=== PATIENT | female | born 1955 | race Caucasian/White ===

== ENCOUNTER → 2016-07-03 | Outpatient (CLI) | payer BC ==
[2016-07-03 08:35] LABS: ALANINE AMINOTRANSFERASE 31 U/L (9-52); ALBUMIN 3.8 g/dL (3.5-5.0); ALKALINE PHOSPHATASE 84 U/L (38-126); ASPARTATE AMINO TRANSFERASE 26 U/L (14-36); BILIRUBIN,DIRECT 0.2 mg/dL (0.0-0.4); BILIRUBIN,TOTAL 0.4 mg/dL (0.2-1.3); TOTAL PROTEIN 6.1 g/dL (6.3-8.2)
== END ==
LOC: OD 07:15
PROVIDERS: ATTEND Radiology Radiation Oncology
DX: C50.011 Malignant neoplasm of nipple and areola, right female breast (principal); Z17.1 Estrogen receptor negative status [ER-]; Z79.899 Other long term (current) drug therapy
CPT/HCPCS: 36415; 80076

== ENCOUNTER → 2016-11-05 | Outpatient (CLI) | payer BC ==
[2016-11-05 08:24] LABS: ABSOLUTE EOSINOPHILS # (AUTO) 0.5 10^3/uL (0.0-0.6); ABSOLUTE LYMPHOCYTES (AUTO) 1.5 10^3/uL (0.5-4.7); ABSOLUTE MONOCYTES (AUTO) 0.8 10^3/uL (0.1-1.4); ABSOLUTE NEUT (AUTO) 3.7 10^3/uL (1.7-8.2); BASOPHILS % (AUTO) 0.7 % (0-2); EOSINOPHILS % (AUTO) 7.1 % (0-6); HEMATOCRIT 40.9 % (36.0-47.0); HEMOGLOBIN 14.1 g/dL (12.0-15.5); HGB HCT DIFFERENCE 1.4; LYMPHOCYTES % (AUTO) 23.6 % (13-45); MEAN CORPUSCULAR HEMOGLOBIN 30.1 pg (27.0-33.4); MEAN CORPUSCULAR HGB CONC 34.4 g/dL (32.0-36.0); MEAN CORPUSCULAR VOLUME 88 fl (80-97); MONOCYTES % (AUTO) 11.7 % (3-13); RED BLOOD COUNT 4.68 10^6/uL (3.72-5.28); SEGMENTED NEUTROPHILS % (AUTO) 56.9 % (42-78); WHITE BLOOD COUNT 6.5 10^3/uL (4.0-10.5)
[2016-11-05 08:48] LABS: ALANINE AMINOTRANSFERASE 32 U/L (9-52); ALBUMIN 3.9 g/dL (3.5-5.0); ALKALINE PHOSPHATASE 102 U/L (38-126); ASPARTATE AMINO TRANSFERASE 29 U/L (14-36); BILIRUBIN,DIRECT 0.3 mg/dL (0.0-0.4); BILIRUBIN,TOTAL 0.6 mg/dL (0.2-1.3); TOTAL PROTEIN 6.8 g/dL (6.3-8.2)
== END ==
LOC: OD 07:42
PROVIDERS: ATTEND Radiology Radiation Oncology
DX: C50.011 Malignant neoplasm of nipple and areola, right female breast (principal); Z17.1 Estrogen receptor negative status [ER-]; Z79.899 Other long term (current) drug therapy
CPT/HCPCS: 36415; 80076; 85025

== ENCOUNTER 2017-06-06 18:01 | Emergency (ER) | payer BC ==
[2017-06-06] MEDS ORDERED: HYDROMORPHONE HCL INJ/PF 2 MG/ML AMPULE IV ONE (18:44)
[2017-06-06] MEDS ORDERED: DIPHENHYDRAMINE HCL 50 MG/ML VIAL IV ONE (18:44)
--- NOTE | 2017-06-06 18:47 | ER Document Report ---
ED Medical Screen (RME) - General TRAVEL OUTSIDE OF THE [place] IN LAST 30 DAYS: No <JAISON MIRANDA - Last Filed: 06/06/17 18:45> <JERED BARAJAS - Last Filed: 06/06/17 22:56> - General Chief Complaint: Flank Pain Stated Complaint: FLANK PAIN Time Seen by Provider: 06/06/17 18:34 Notes: Patient says that she had the sudden onset of pain in her left flank 10 AM this morning. She was not doing any unusual activity when it happened. The pain is now starting to go around the left side to the front. Pain is constant and does not seem to be increased or decreased by any particular factors. She has not had any nausea or vomiting. She had one regular bowel movement today followed by a loose stool. No blood seen. Denies urinary tract symptoms. No history of kidney stones. No history of cardiac disease. GERD. Hypertension. Cholesterol. Patient was diagnosed with right breast cancer 2 years ago. She underwent initial surgery followed by radiation and chemotherapy. She has completed all of that and is believed to be cancer free so she is no longer receiving any treatment for her cancer. (JAISON MIRANDA) - Related Data Allergies/Adverse Reactions: No Known Allergies Allergy (Unverified 06/06/17 18:02) Past Medical History - Social History Frequency of alcohol use: Rare Drug Abuse: None Renal/ Medical History: Denies: Hx Peritoneal Dialysis <JAISON MIRANDA - Last Filed: 06/06/17 18:45> - Vital signs Vitals: Temp Pulse Resp BP Pulse Ox 98.0 F 115 H 18 149/77 H 96 06/06/17 18:07 06/06/17 18:07 06/06/17 18:07 06/06/17 18:07 06/06/17 18:07 Course - Laboratory Result Diagrams: 06/06/17 19:00 06/06/17 19:00 <JERED BARAJAS - Last Filed: 06/06/17 22:56> - Vital Signs Vital signs: Temp Pulse Resp BP Pulse Ox 98.0 F 115 H 18 149/77 H 96 06/06/17 18:07 06/06/17 18:07 06/06/17 18:07 06/06/17 18:06/06/17 18:07 - Laboratory Laboratory results interpreted by me: 06/06/17 06/06/17 06/06/17 19:00 19:00 19:00 Seg Neutrophils % 78.3 H Sodium 135.7 L Glucose 165 H Urine Glucose (UA) 50 H Ur Leukocyte Esterase TRACE H Urine Ascorbic Acid 40 H Doctor's Discharge <JAISON MIRANDA - Last Filed: 06/06/17 18:45> <JERED BARAJAS - Last Filed: 06/06/17 22:56> - Discharge Clinical Impression: High blood sugar, Elevated serum glucose with glucosuria Condition: Stable Instructions: Abdominal Pain ([facility]) Additional Instructions: Your blood sugar was slightly elevated today (165). Please follow up with your primary medical doctor for further evaluation. Prescriptions: Naproxen [Naprosyn] 500 mg PO BID 5 Days #10 tablet Referrals: KAVON WHEATLEY MD [Primary Care Provider] - Follow up in 3-5 days
[2017-06-06 19:23] LABS: ABSOLUTE EOSINOPHILS # (AUTO) 0.2 10^3/uL (0.0-0.6); ABSOLUTE LYMPHOCYTES (AUTO) 1.3 10^3/uL (0.5-4.7); ABSOLUTE MONOCYTES (AUTO) 0.5 10^3/uL (0.1-1.4); ABSOLUTE NEUT (AUTO) 7.2 10^3/uL (1.7-8.2); BASOPHILS % (AUTO) 0.4 % (0-2); EOSINOPHILS % (AUTO) 2.4 % (0-6); HEMATOCRIT 44.7 % (36.0-47.0); LYMPHOCYTES % (AUTO) 13.9 % (13-45); MEAN CORPUSCULAR HEMOGLOBIN 29.3 pg (27.0-33.4); MEAN CORPUSCULAR HGB CONC 33.5 g/dL (32.0-36.0); MEAN CORPUSCULAR VOLUME 87 fl (80-97); PLATELET COUNT 324 10^3/uL (150-450); RED BLOOD COUNT 5.11 10^6/uL (3.72-5.28); RED CELL DISTRIBUTION WIDTH 13.8 % (11.5-14.0); SEGMENTED NEUTROPHILS % (AUTO) 78.3 % (42-78); TOTAL CELLS COUNTED % (AUTO) 100 %; WHITE BLOOD COUNT 9.2 10^3/uL (4.0-10.5)
--- NOTE | 2017-06-06 19:25 | ER Document Report ---
ED General - General Chief Complaint: Flank Pain Stated Complaint: FLANK PAIN Time Seen by Provider: 06/06/17 18:34 Mode of Arrival: Ambulatory Information source: Patient TRAVEL OUTSIDE OF THE [place] IN LAST 30 DAYS: No - HPI Patient complains to provider of: left side pain Onset: This morning - 1000am Quality of pain: Pressure Severity: Moderate Associated symptoms: None Exacerbated by: Denies Relieved by: Denies Similar symptoms previously: No Recently seen / treated by doctor: No Notes: acute onset left flank pain this am at 1000. No aggravating/alleviating factors. No associated symptoms. - Related Data Allergies/Adverse Reactions: No Known Allergies Allergy (Unverified 06/06/17 18:02) Past Medical History - Social History Smoking Status: Never Smoker Frequency of alcohol use: Rare Drug Abuse: None Lives with: Family Family History: Hypertension Patient has suicidal ideation: No Patient has homicidal ideation: No - Past Medical History Cardiac Medical History: Reports: Hx Hypertension Pulmonary Medical History: Reports: None EENT Medical History: Reports: None Neurological Medical History: Reports: None Endocrine Medical History: Reports: None Renal/ Medical History: Reports: None. Denies: Hx Peritoneal Dialysis Malignancy Medical History: Reports: Hx Breast Cancer GI Medical History: Reports: None Musculoskeltal Medical History: Reports None Skin Medical History: Reports None Psychiatric Medical History: Reports: None Traumatic Medical History: Reports: None Infectious Medical History: Reports: None Past Surgical History: Reports: Hx Lumpectomy Review of Systems - Review of Systems Constitutional: No symptoms reported EENT: No symptoms reported Cardiovascular: No symptoms reported Respiratory: No symptoms reported Gastrointestinal: See HPI Genitourinary: No symptoms reported Female Genitourinary: No symptoms reported Musculoskeletal: No symptoms reported Hematologic/Lymphatic: No symptoms reported Neurological/Psychological: No symptoms reported Physical Exam - Vital signs Vitals: Temp Pulse Resp BP Pulse Ox 98.0 F 115 H 18 149/77 H 96 06/06/17 18:07 06/06/17 18:07 06/06/17 18:07 06/06/17 18:07 06/06/17 18:07 - Notes Notes: PHYSICAL EXAMINATION: GENERAL: Well-appearing, well-nourished and in no acute distress. Laying in bed on her right side with a blanket from home over her. HEAD: Atraumatic, normocephalic. EYES: Pupils equal round and reactive to light, extraocular movements intact, conjunctiva are normal. ENT: Nares patent, oropharynx clear without exudates. Moist mucous membranes. NECK: Normal range of motion, supple without lymphadenopathy LUNGS: Breath sounds clear to auscultation bilaterally and equal. No wheezes rales or rhonchi. HEART: Regular rate and rhythm without murmurs ABDOMEN: Soft, nontender, nondistended abdomen. No guarding, no rebound. No masses appreciated. Nonreproducible left flank pain. Female : deferred Musculoskeletal: Normal range of motion, no pitting or edema. No cyanosis. NEUROLOGICAL: Cranial nerves grossly intact. Normal speech. Normal sensory, motor exams. PSYCH: Normal mood, normal affect. SKIN: Warm, Dry, normal turgor, no rashes or lesions noted. Course - Re-evaluation Re-evalutation: 06/06/17 20:53 Labs- All tests 24 hr 06/06/17 06/06/17 06/06/17 19:00 19:00 19:00 WBC 9.2 RBC 5.11 Hgb 15.0 Hct 44.7 MCV 87 MCH 29.3 MCHC 33.5 RDW 13.8 Plt Count 324 Seg Neutrophils % 78.3 H Lymphocytes % 13.9 Monocytes % 5.0 Eosinophils % 2.4 Basophils % 0.4 Absolute Neutrophils 7.2 Absolute Lymphocytes 1.3 Absolute Monocytes 0.5 Absolute Eosinophils 0.2 Absolute Basophils 0.0 Sodium 135.7 L Potassium 4.9 Chloride 100 Carbon Dioxide 26 Anion Gap 10 BUN 14 Creatinine 0.74 Est GFR ( Amer) > 60 Est GFR (Non-Af Amer) > 60 Glucose 165 H Calcium 9.7 Total Bilirubin 0.4 Direct Bilirubin 0.4 Neonat Total Bilirubin Not Reportable Neonat Direct Bilirubin Not Reportable Neonat Indirect Bili Not Reportable AST 33 ALT 46 Alkaline Phosphatase 111 Total Protein 7.0 Albumin 4.2 Lipase 77.5 Urine Color YELLOW Urine Appearance CLOUDY Urine pH 7.0 Ur Specific Colbert 1.021 Urine Protein NEGATIVE Urine Glucose (UA) 50 H Urine Ketones NEGATIVE Urine Blood NEGATIVE Urine Nitrite NEGATIVE Urine Bilirubin NEGATIVE Urine Urobilinogen NEGATIVE Ur Leukocyte Esterase TRACE H Urine WBC (Auto) 1 Urine RBC (Auto) 2 Squamous Epi Cells Auto 3 Amorphous Sediment Auto TRACE Urine Mucus (Auto) OCC Urine Ascorbic Acid 40 H 06/06/17 22:50 Labs- All tests 24 hr 06/06/17 06/06/17 06/06/17 19:00 19:00 19:00 WBC 9.2 RBC 5.11 Hgb 15.0 Hct 44.7 MCV 87 MCH 29.3 MCHC 33.5 RDW 13.8 Plt Count 324 Seg Neutrophils % 78.3 H Lymphocytes % 13.9 Monocytes % 5.0 Eosinophils % 2.4 Basophils % 0.4 Absolute Neutrophils 7.2 Absolute Lymphocytes 1.3 Absolute Monocytes 0.5 Absolute Eosinophils 0.2 Absolute Basophils 0.0 Sodium 135.7 L Potassium 4.9 Chloride 100 Carbon Dioxide 26 Anion Gap 10 BUN 14 Creatinine 0.74 Est GFR ( Amer) > 60 Est GFR (Non-Af Amer) > 60 Glucose 165 H Calcium 9.7 Total Bilirubin 0.4 Direct Bilirubin 0.4 Neonat Total Bilirubin Not Reportable Neonat Direct Bilirubin Not Reportable Neonat Indirect Bili Not Reportable AST 33 ALT 46 Alkaline Phosphatase 111 Total Protein 7.0 Albumin 4.2 Lipase 77.5 Urine Color YELLOW Urine Appearance CLOUDY Urine pH 7.0 Ur Specific Colbert 1.021 Urine Protein NEGATIVE Urine Glucose (UA) 50 H Urine Ketones NEGATIVE Urine Blood NEGATIVE Urine Nitrite NEGATIVE Urine Bilirubin NEGATIVE Urine Urobilinogen NEGATIVE Ur Leukocyte Esterase TRACE H Urine WBC (Auto) 1 Urine RBC (Auto) 2 Squamous Epi Cells Auto 3 Amorphous Sediment Auto TRACE Urine Mucus (Auto) OCC Urine Ascorbic Acid 40 H Abdomen/Pelvis CT 06/06/17 20:22 IMPRESSION: NO SIGNIFICANT OR ACUTE PROCESS IN THE ABDOMEN OR PELVIS. - Vital Signs Vital signs: Temp Pulse Resp BP Pulse Ox 98.0 F 115 H 18 149/77 H 96 06/06/17 18:07 06/06/17 18:07 06/06/17 18:07 06/06/17 18:07 06/06/17 18:07 - Laboratory Result Diagrams: 06/06/17 19:00 06/06/17 19:00 Laboratory results interpreted by me: 06/06/17 06/06/17 06/06/17 19:00 19:00 19:00 Seg Neutrophils % 78.3 H Sodium 135.7 L Glucose 165 H Urine Glucose (UA) 50 H Ur Leukocyte Esterase TRACE H Urine Ascorbic Acid 40 H Discharge - Discharge Clinical Impression: High blood sugar, Elevated serum glucose with glucosuria Condition: Stable Instructions: Abdominal Pain ([facility]) Additional Instructions: Your blood sugar was slightly elevated today (165). Please follow up with your primary medical doctor for further evaluation. Referrals: KAVON WHEATLEY MD [Primary Care Provider] - Follow up in 3-5 days
[2017-06-06 19:42] LABS: ALANINE AMINOTRANSFERASE 46 U/L (9-52); ALBUMIN 4.2 g/dL (3.5-5.0); ALKALINE PHOSPHATASE 111 U/L (38-126); ANION GAP 10 (5-19); ASPARTATE AMINO TRANSFERASE 33 U/L (14-36); BILIRUBIN,DIRECT 0.4 mg/dL (0.0-0.4); BILIRUBIN,TOTAL 0.4 mg/dL (0.2-1.3); BLOOD UREA NITROGEN 14 mg/dL (7-20); CALCIUM 9.7 mg/dL (8.4-10.2); CARBON DIOXIDE 26 mmol/L (22-30); CHLORIDE 100 mmol/L (98-107); GLUCOSE 165 mg/dL (75-110); LIPASE 77.5 U/L (23-300); POTASSIUM 4.9 mmol/L (3.6-5.0); SODIUM 135.7 mmol/L (137-145)
[2017-06-06 20:02] LABS: AMORPHOUS SEDIMENT,URINE TRACE /HPF; APPEARANCE,URINE CLOUDY; BILIRUBIN,URINE NEGATIVE (NEGATIVE); COLOR,URINE YELLOW; GLUCOSE, URINE 50 mg/dL (NEGATIVE); KETONES,URINE NEGATIVE (NEGATIVE); LEUKOCYTE ESTERASE,URINE TRACE (NEGATIVE); NITRITE,URINE NEGATIVE (NEGATIVE); PROTEIN,URINE NEGATIVE (NEGATIVE); URINE SPECIFIC GRAVITY 1.021; UROBILINOGEN,URINE NEGATIVE mg/dL (<2.0)
[2017-06-06] MEDS ORDERED: KETOROLAC TROMETHAMINE INJ/PF 30 MG/1 ML SDV IV ONE (20:23)
--- NOTE | 2017-06-06 21:07 | RADIOLOGY REPORT (SQ) ---
EXAM DESCRIPTION: CT ABD/PELVIS NO ORAL OR IV COMPLETED DATE/TIME: 06/06/2017 8:42 pm REASON FOR STUDY: left flank pain COMPARISON: None. TECHNIQUE: CT scan of the abdomen and pelvis performed without intravenous or oral contrast. Images reviewed with lung, soft tissue, and bone windows. Reconstructed coronal and sagittal MPR images revi ewed. All images stored on PACS. All CT scanners at this facility use dose modulation, iterative reconstruction, and/or weight based d osing when appropriate to reduce radiation dose to as low as reasonably achievable (ALARA). [facility]: Dose Right [facility]: CareDose [facility]: Dose Right [facility]: Teradose 4D [facility]: Smart [employer] RADIATION DOSE: CT Rad equipment meets quality standard of care and radiation dose reduction techniq ues were employed. CTDIvol: 19.0 mGy. DLP: 1026 mGy-cm.mGy. LIMITATIONS: None. FINDINGS: LOWER CHEST: No significant findings. No nodules or infiltrates. NON-CONTRASTED LIVER, SPLEEN, ADRENALS: Evaluation limited by lack of IV contrast. No identified sign ificant masses. PANCREAS: No masses. No peripancreatic inflammatory changes. GALLBLADDER: No identified stones by CT criteria. No inflammatory changes to suggest cholecystitis. RIGHT KIDNEY AND URETER: No suspicious masses. Assessment limited by lack of IV contrast. No signif icant calcifications. No hydronephrosis or hydroureter. LEFT KIDNEY AND URETER: No suspicious masses. Assessment limited by lack of IV contrast. No signifi cant calcifications. No hydronephrosis or hydroureter. AORTA AND RETROPERITONEUM: No aneurysm. No retroperitoneal masses or adenopathy. BOWEL AND PERITONEAL CAVITY: No obvious masses or inflammatory changes. No free fluid. APPENDIX: Not visualized. PELVIS, BLADDER, AND ABDOMINAL WALL:No abnormal masses. No free fluid. Bladder normal. BONES: No significant findings. OTHER: No other significant finding. IMPRESSION: NO SIGNIFICANT OR ACUTE PROCESS IN THE ABDOMEN OR PELVIS. COMMENT: Quality ID # [id number]: Final reports with documentation of one or more dose reduction techniques (e.g., Automated exposure control, adjustment of the mA and/or kV according to patient size, use of iterative reconstruction technique) TECHNICAL DOCUMENTATION: JOB ID: [id number] [employer]- All Rights Reserved Reading location - IP/workstation name: [email or web address]
[2017-06-06] MEDS ORDERED: HYDROCODONE/ACETAMINOPHEN 5-325 MG (6 TAB/ER DISP) PO PRN (22:49)
[2017-06-06 23:10] VITALS: BP 135/82
== END 2017-06-06 23:11 | disposition home or self-care (01) ==
LOC: ER 18:01
DX: R73.9 Hyperglycemia, unspecified (principal); R81 Glycosuria; R10.9 Unspecified abdominal pain; I10 Essential (primary) hypertension; Z85.3 Personal history of malignant neoplasm of breast
CPT/HCPCS: 99284; 96374; 96375; 36415; 83690; 85025; 80053; 81001; 74176; J1200; J1885; J1170

== ENCOUNTER → 2018-04-04 | Outpatient (CLI) | payer BC ==
--- NOTE | 2018-04-04 10:51 | WOMENS IMAGING REPORT ---
EXAM DESCRIPTION: BONE DENSITY HIP/SPINE COMPLETED DATE/TIME: 04/04/2018 10:27 am REASON FOR STUDY: M81.0 OSTEOPOROSIS M81.0 AGE-RELATED OSTEOPOROSIS W/O CURRENT PATHOLOGICAL FRAC COMPARISON: 04/01/2016. TECHNIQUE: Dual-Energy X-ray Absorptiometry (DEXA) of the AP Spine and Hip. LIMITATIONS: None. FINDINGS: LUMBAR SPINE: The bone mineral density (BMD) measured from L1-L4 in the AP projection correlates with a T-score of -0.3, which is normal as defined by the World Health Organization. HIP: The bone mineral density (BMD) measured in the left hip correlates with a T-score of 0.5, which is no rmal as defined by the World Health Organization. IMPRESSION: 1. LUMBAR SPINE: NORMAL. 2. HIP: NORMAL. COMMENT: The World Health Organization defines low BMD as follows: T-score: Normal: Greater than -1.0 Osteopenia: Between -1.0 and -2.5 Osteoporosis: Less than -2.5 without fractures Established osteoporosis: Less than -2.5 with fractures In general, you may wish to consider: Diagnosis Treatment Follow-up DEXA Normal BMD Prevention 2-3 years Osteopenia Prevention/Therapy 1-2 years Osteoporosis Therapy Yearly TECHNICAL DOCUMENTATION: JOB ID: [id number] [employer]- All Rights Reserved Reading location - IP/workstation name: [email or web address]
== END ==
LOC: WI 10:05
PROVIDERS: ATTEND Internal Medicine
DX: M81.0 Age-related osteoporosis without current pathological fracture (principal)
CPT/HCPCS: 77080

== ENCOUNTER → 2018-08-30 | Outpatient (CLI) | payer BC ==
--- NOTE | 2018-08-30 15:52 | RADIOLOGY REPORT (SQ) ---
EXAM DESCRIPTION: CAROTID DOPPLER COMPLETED DATE/TIME: 08/30/2018 3:33 pm REASON FOR STUDY: RETINAL HEMORRHAGE H35.60 RETINAL HEMORRHAGE, UNSPECIFIED EYE COMPARISON: None. TECHNIQUE: Grayscale ultrasound, Doppler velocity and spectra, and color Doppler images acquired of the extra-cranial carotid and vertebral arteries. Images stored on PACS. LIMITATIONS: High carotid bifurcations in the neck, tortuous proximal ICA bilaterally FINDINGS: RIGHT CAROTID CCA Velocities: Within normal limits. Right common carotid artery peak systolic velocity 1.0 m/sec ICA Velocities Peak systolic 0.84 m/s. End diastolic 0.22 m/s. Proximal ICA/CCA peak systolic ratio 0.8. Spectra normal. No significant plaque. LEFT CAROTID CCA Velocities: Within normal limits. Left common carotid artery peak systolic velocity 0.74 m/sec ICA Velocities Peak systolic 0.6 m/s. End diastolic 0.22 m/s. Proximal ICA/CCA peak systolic ratio 1.2. Spectra normal. No significant plaque. VERTEBRAL ARTERIES: Antegrade flow. Normal waveforms. SUBCLAVIAN ARTERIES: Not evaluated OTHER: No other significant finding. IMPRESSION: NO HEMODYNAMICALLY SIGNIFICANT STENOSIS. COMMENT: Quality ID #[id number]: Velocity criteria are extrapolated from the diameter data as defined by t he Society of Radiologists in Ultrasound Consensus Conference. Radiology 2003: 229; 340-346. TECHNICAL DOCUMENTATION: JOB ID: [id number] [employer]- All Rights Reserved Reading location - IP/workstation name: [email or web address]
== END ==
LOC: SP 14:50
PROVIDERS: ATTEND Nurse Practitioner Primary Care
DX: H35.60 Retinal hemorrhage, unspecified eye (principal)
CPT/HCPCS: 93880

== ENCOUNTER → 2019-03-24 | Outpatient (CLI) | payer BC ==
--- NOTE | 2019-03-26 13:28 | RADIOLOGY REPORT (SQ) ---
EXAM DESCRIPTION: MRI LUMBAR SPINE COMBO COMPLETED DATE/TIME: 03/24/2019 6:11 pm REASON FOR STUDY: (M54.5)LOW BACK PAIN M54.5 LOW BACK PAIN COMPARISON: None. TECHNIQUE: Sagittal and Axial imaging includes T1, T1 post gadolinium, T2, STIR and gradient echo se quences. Coronal T2/HASTE imaging. CONTRAST TYPE AND DOSE: 20 mL Dotarem. RENAL FUNCTION: Not indicated. ACR Type II contrast agent associated with few, if any, unconfounded cases of NSF LIMITATIONS: None. FINDINGS: VISUALIZED UPPER ABDOMEN: Limited evaluation. No acute or suspicious findings suggested. SEGMENTATION: No transitional anatomy. The lowest well-developed disc space is labeled L5-S1. ALIGNMENT: Anatomic. VERTEBRAE: Intact. No fractures. BONE MARROW: Mild reactive endplate changes L2-3, L3-4, L4-5. DISC SIGNAL: Generalized loss of T2 signal. Loss of height lower thoracic discs. POSTERIOR ELEMENTS: Generally intact. No pars defect evident. HARDWARE: None in the spine. CORD AND CONUS: Normal in size and signal intensity. Conus at the appropriate level. SOFT TISSUES: No aortic aneurysm seen. No bulky retroperitoneal adenopathy or mass. No paraspinal mas s or fluid. L1-L2: No significant spinal stenosis or exit foraminal stenosis. L2-L3: Disc bulge. Facet ligamentous hypertrophy. Mild narrowing of both exit foramina. L3-L4: No significant spinal stenosis or exit foraminal stenosis. L4-L5: Disc bulge. Facet ligamentous hypertrophy. Mild narrowing of the exit foramina. Mild to mod erate central canal stenosis. L5-S1: No significant spinal stenosis or exit foraminal stenosis. LOWER THORACIC: Incompletely imaged. No stenosis seen. SACRUM: Visualized upper sacrum intact. ENHANCEMENT: No abnormal enhancement. OTHER: No other significant findings. IMPRESSION: Mild spondylosis. No enhancing lesions. TECHNICAL DOCUMENTATION: JOB ID: [id number] [employer]- All Rights Reserved Reading location - IP/workstation name: [email or web address]
== END ==
LOC: RAD 16:51
PROVIDERS: ATTEND Physician Assistant
DX: M47.896 Other spondylosis, lumbar region (principal); M54.5 Low back pain
CPT/HCPCS: 82565; 72158; A9576

== ENCOUNTER 2019-10-13 08:59 | Inpatient (IN) | payer BC ==
[2019-10-13] MEDS ORDERED: RINGERS LACTATED IV ONE (09:41)
[2019-10-13] MEDS ORDERED: VANCOMYCIN HCL INJ 1000 MG VIAL IV ONE (09:41)
--- NOTE | 2019-10-13 09:46 | ER Document Report ---
ED General - General Chief Complaint: Arm Problem Stated Complaint: BLOOD PRESSURE ISSUE Time Seen by Provider: 10/13/19 09:37 Primary Care Provider: NAINA ADORNO PA [Primary Care Provider] - Follow up as needed Notes: CHIEF COMPLAINT: Right arm and chest wall cellulitis, hypotension HPI: 64-year-old female with history of right breast cancer treated with radiation and chemotherapy years ago presenting for right arm breast and chest wall cellulitis and hypotension. Patient began not feeling well 2 days ago. Saw her PCP today and was noted to have increasing redness on the right arm chest wall and breast. Patient states she has followed with Dr. Dias oncology. Patient states she does have high blood pressure and did take her blood pressure medications today. She was noted to be hypotensive at the PCP clinic and referred over to the emergency department for concern of sepsis ROS: See HPI - all other systems were reviewed and are otherwise negative Constitutional: Subjective fever Eyes: no drainage, no blurred vision ENT: no runny nose, no sore throat Cardiovascular: no chest pain Resp: no SOB, no cough GI: no vomiting, no diarrhea, no abdominal pain : no dysuria Integumentary: + rash Allergy: no hives Musculoskeletal: + extremity pain or swelling Neurological: no numbness/tingling, no weakness MEDICATIONS: I agree with the patient medications as charted by the RN. ALLERGIES: I agree with the allergies as charted by the RN. PAST MEDICAL HISTORY/PAST SURGICAL HISTORY: Reviewed and agree as charted by RN. SOCIAL HISTORY: Reviewed and agree as charted by RN. FAMILY HISTORY: No significant familial comorbid conditions directly related to patient complaint EXAM: With female sleeve turner present Reviewed vital signs as charted by RN. CONSTITUTIONAL: Alert and oriented and responds appropriately to questions. Well-appearing; well-nourished HEAD: Normocephalic; atraumatic EYES: PERRL; Conjunctivae clear, sclerae non-icteric ENT: normal nose; no rhinorrhea; moist mucous membranes; pharynx without lesions noted, no uvula edema or deviation, no tonsillar hypertrophy, phonation normal NECK: Supple without meningismus; non-tender; no cervical lymphadenopathy, no masses CARD: RRR; no murmurs, no clicks, no rubs, no gallops; symmetric distal pulses Breast: Right breast is somewhat firm, erythematous and mildly tender to palpation over the entire breast RESP: Normal chest excursion without splinting or tachypnea; breath sounds clear and equal bilaterally; no wheezes, no rhonchi, no rales, pulse oximetry 97% on room air not hypoxic ABD/GI: Normal bowel sounds; non-distended; soft, non-tender, no rebound, no guarding; no palpable organomegaly or masses. BACK: The back appears normal and is non-tender to palpation, there is no CVA tenderness EXT: Normal ROM in all joints; non-tender to palpation; no cyanosis, no effusions, no edema SKIN: Normal color for age and race; warm; dry; good turgor; erythema and tenderness is noted to the right forearm, right upper arm extending into the shoulder, over the right breast, to the right upper abdomen and lateral right chest wall past the midaxillary line NEURO: Moves all extremities equally; Motor and sensory function intact PSYCH: The patient's mood and manner are appropriate. Grooming and personal hygiene are appropriate. MDM: 64-year-old female with possible cellulitis right arm, right breast, right chest wall. Hypotensive but did take her blood pressure medications already today. Concern for possible sepsis, will start sepsis labs, fluid bolus, antibiotics she will likely need admission TRAVEL OUTSIDE OF THE [place] IN LAST 30 DAYS: No - Related Data Allergies/Adverse Reactions: No Known Allergies Allergy (Unverified 10/13/19 09:20) Past Medical History - Social History Smoking Status: Never Smoker Chew tobacco use (# tins/day): No Frequency of alcohol use: None Drug Abuse: None Family History: Hypertension Patient has homicidal ideation: No - Past Medical History Cardiac Medical History: Reports: Hx Hypertension Renal/ Medical History: Denies: Hx Peritoneal Dialysis Malignancy Medical History: Reports: Hx Breast Cancer Past Surgical History: Reports: Hx Lumpectomy Physical Exam - Vital signs Vitals: Temp Pulse Resp BP Pulse Ox 98.5 F 105 H 20 96/56 L 97 10/13/19 09:04 10/13/19 09:04 10/13/19 09:04 10/13/19 09:04 10/13/19 09:04 Course - Re-evaluation Re-evalutation: 10/13/19 11:17 Doppler study is negative. No DVT in the right upper extremity. Spoke with Dr. Dias. They do continue to follow the patient she had remote history of stage III breast cancer 2016 treated with radiation and chemotherapy. Was treated for mastitis in August 2019 with 10-day course of Augmentin with improvement in symptoms. Did have mammogram of the right breast and of September 2019 which showed some thickening of the tissue but no mass. We discussed patient case may be admitted to hospitalist for cellulitis and he will be happy to consult if needed 10/13/19 11:[address] Esposito. Case discussed, admit to medical bed - Vital Signs Vital signs: Temp Pulse Resp BP Pulse Ox 98.5 F 105 H 20 86/58 L 95 10/13/19 09:04 10/13/19 09:04 10/13/19 09:04 10/13/19 09:28 10/13/19 10:04 - Laboratory Result Diagrams: 10/13/19 09:35 10/13/19 09:35 Laboratory results interpreted by me: 10/13/19 10/13/19 09:35 09:35 WBC 10.7 H Lymph % (Auto) 10.7 L Sodium 135.6 L BUN 41 H Creatinine 1.49 H Est GFR ( Amer) 43 L Est GFR (MDRD) Non-Af 35 L Glucose 117 H Critical Care Note - Critical Care Note Total time excluding time spent on procedures (mins): 45 - sepsis evaluation, mult consultations Discharge - Discharge Clinical Impression: Cellulitis of arm, right, Mastitis in female Condition: Stable Disposition: ADMITTED INPATIENT Admitting Provider: Cate (Hospitalist) Unit Admitted: Medical Floor Referrals: NAINA ADORNO PA [Primary Care Provider] - Follow up as needed
[2019-10-13 10:20] LABS: VENOUS BLOOD BASE EXCESS 3.3 mmol/L; VENOUS BLOOD HCO3 28.5 mmol/L (20-32); VENOUS BLOOD PCO2 45.3 mmHg (35-63); VENOUS BLOOD PH 7.42 (7.30-7.42)
[2019-10-13 10:23] LABS: ABSOLUTE EOSINOPHILS # (AUTO) 0.3 10^3/uL (0.0-0.6); ABSOLUTE LYMPHOCYTES (AUTO) 1.1 10^3/uL (0.5-4.7); ABSOLUTE MONOCYTES (AUTO) 1.1 10^3/uL (0.1-1.4); ABSOLUTE NEUT (AUTO) 8.1 10^3/uL (1.7-8.2); BASOPHILS % (AUTO) 0.4 % (0-2); EOSINOPHILS % (AUTO) 2.6 % (0-6); HEMATOCRIT 38.6 % (36.0-47.0); HEMOGLOBIN 13.2 g/dL (12.0-15.5); LYMPHOCYTES % (AUTO) 10.7 % (13-45); MEAN CORPUSCULAR HEMOGLOBIN 30.2 pg (27.0-33.4); MEAN CORPUSCULAR HGB CONC 34.2 g/dL (32.0-36.0); MEAN CORPUSCULAR VOLUME 89 fl (80-97); MONOCYTES % (AUTO) 10.5 % (3-13); PLATELET COUNT 291 10^3/uL (150-450); RED BLOOD COUNT 4.36 10^6/uL (3.72-5.28); RED CELL DISTRIBUTION WIDTH 13.7 % (11.5-14.0); SEGMENTED NEUTROPHILS % (AUTO) 75.8 % (42-78); TOTAL CELLS COUNTED % (AUTO) 100 %; WHITE BLOOD COUNT 10.7 10^3/uL (4.0-10.5)
[2019-10-13 10:28] LABS: INTERNATIONAL RATION (INR) 1.06; PROTHROMBIN TIME 13.8 SEC (11.4-15.4)
--- NOTE | 2019-10-13 10:39 | RADIOLOGY REPORT (SQ) ---
EXAM DESCRIPTION: CHEST SINGLE VIEW IMAGES COMPLETED DATE/TIME: 10/13/2019 10:29 am REASON FOR STUDY: hx breast CA, right breast cellulitis COMPARISON: None. EXAM PARAMETERS: NUMBER OF VIEWS: One view. TECHNIQUE: An AP view of the chest was obtained. RADIATION DOSE: NA LIMITATIONS: None. FINDINGS: LUNGS AND PLEURA: No consolidation, pleural effusion or pneumothorax. MEDIASTINUM AND HILAR STRUCTURES: No mediastinal or hilar contour abnormality. HEART AND VASCULAR STRUCTURES: The cardiac silhouette and pulmonary vasculature are within normal gallegos its. BONES: No acute findings. HARDWARE: Surgical clips that project within the right axilla. OTHER: No other finding. IMPRESSION: No acute cardiopulmonary process. TECHNICAL DOCUMENTATION: JOB ID: [id number] 2010 [employer]- All Rights Reserved Reading location - IP/workstation name: [email or web address]
[2019-10-13 10:42] LABS: ALBUMIN 3.7 g/dL (3.5-5.0); ALKALINE PHOSPHATASE 60 U/L (38-126); ANION GAP 7 (5-19); ASPARTATE AMINO TRANSFERASE 31 U/L (14-36); BILIRUBIN,DIRECT 0.2 mg/dL (0.0-0.4); BILIRUBIN,TOTAL 0.4 mg/dL (0.2-1.3); BLOOD UREA NITROGEN 41 mg/dL (7-20); CALCIUM 9.7 mg/dL (8.4-10.2); CARBON DIOXIDE 27 mmol/L (22-30); CHLORIDE 102 mmol/L (98-107); GLUCOSE 117 mg/dL (75-110); TOTAL PROTEIN 6.7 g/dL (6.3-8.2)
[2019-10-13] MEDS ORDERED: MAG HYDROX/AL HYDROX/SIMETH SUSP 30 ML UDCUP PO PRN (12:41)
[2019-10-13] MEDS ORDERED: MAGNESIUM HYDROXIDE SUSP 30 ML UDCUP PO PRN (12:41)
[2019-10-13] MEDS ORDERED: ACETAMINOPHEN 325 MG TABLET PO PRN (12:41)
[2019-10-13] MEDS ORDERED: VANCOMYCIN HCL 0 MG in DEXTROSE 5%-WATER 250 ML IV NR (13:00)
--- NOTE | 2019-10-13 13:14 | PDOC H&P ---
History of Present Illness Admission Date/PCP: 10/13/19 11:49 DANUTA SAENZ Patient complains of: Acute onset erythema and discomfort right right arm breast, right side of chest, shoulder and back. History of Present Illness: MARYBETH SIMON is a 64 year old female Past Medical History Cardiac Medical History: Reports: Hyperlipidema, Hypertension Pulmonary Medical History: Reports: Sleep Apnea Denies: Asthma, Chronic Obstructive Pulmonary Disease (COPD), Respiratory Failure EENT Medical History: Reports: Other - Allergic rhinitis Neurological Medical History: Denies: Ischemic CVA, Seizures Endocrine Medical History: Reports: Obesity Denies: Diabetes Mellitus Type 2, Hypothyroidism Renal/ Medical History: Denies: Chronic Kidney Disease Malignancy Medical History: Reports: Breast Cancer GI Medical History: Reports: Gastroesophageal Reflux Disease Denies: Cirrhosis, Peptic Ulcer Disease Musculoskeltal Medical History: Reports: Arthritis Skin Medical History: Denies: Eczema, Psoriasis Psychiatric Medical History: Reports: Depression Denies: Alcohol Dependency, Tobacco Dependency Traumatic Medical History: Reports: None Hematology: Denies: Anemia, Bleeding Tendencies Infectious Medical History: Reports: None Past Surgical History Past Surgical History: Reports: Section, Other - Right lumpectomy Social History Information Source: Patient Lives with: Alone Smoking Status: Never Smoker Electronic Cigarette use?: No Frequency of Alcohol Use: None Hx Recreational Drug Use: No Hx Prescription Drug Abuse: No - Advance Directive Resuscitation Status: Do Not Resuscitate Surrogate healthcare decision maker:: Children would be the designated decision makers. Family History Family History: CAD, Hypertension Parental Family History Reviewed: Yes Children Family History Reviewed: Yes Sibling(s) Family History Reviewed.: Yes Medication/Allergy Home Medications: Carvedilol [Coreg 6.25 mg Tablet] 6.25 mg PO BID 10/13/19 Cetirizine HCl [Zyrtec] 10 mg PO DAILY 10/13/19 Hydrochlorothiazide [Hydrodiuril 25 mg Tablet] 25 mg PO DAILY 10/13/19 Hydrocodone/Acetaminophen [[place] 10-325 Tablet] 1 each PO QIDP PRN 10/13/19 Letrozole 2.5 mg PO DAILY 10/13/19 Lisinopril [Prinivil 10 mg Tablet] 10 mg PO BID 10/13/19 Meloxicam [Mobic 15 mg Tablet] 15 mg PO DAILYP PRN 10/13/19 Oxybutynin Chloride [Ditropan 5 mg Tablet] 5 mg PO BID 10/13/19 Rosuvastatin Calcium 10 mg PO QHS 10/13/19 Venlafaxine HCl [Effexor 75 mg Tablet] 75 mg PO BID 10/13/19 Allergies/Adverse Reactions: No Known Allergies Allergy (Verified 10/13/19 11:50) Review of Systems All systems: reviewed and no additional remarkable complaints except as stated Constitutional: PRESENT: chills, fever(s) Integumentary: PRESENT: erythema Psychiatric: PRESENT: depression Allergic/Immunologic: PRESENT: seasonal rhinorrhea Physical Exam Vital Signs: Temp Pulse Resp BP Pulse Ox 98.5 F 105 H 15 141/71 H 99 10/13/19 09:04 10/13/19 09:04 10/13/19 12:01 10/13/19 12:00 10/13/19 12:01 Intake & Output 10/12/19 10/13/19 10/14/19 06:59 06:59 06:59 Weight 103 kg General appearance: PRESENT: cooperative, mild distress, morbidly obese - BMI 47 .9, well-developed Head exam: PRESENT: atraumatic, normocephalic Eye exam: PRESENT: conjunctiva pink, EOMI. ABSENT: scleral icterus Ear exam: PRESENT: normal external ear exam. ABSENT: bleeding, drainage Mouth exam: PRESENT: moist, tongue midline Neck exam: ABSENT: carotid bruit, JVD, lymphadenopathy Respiratory exam: PRESENT: clear to auscultation raul, symmetrical, unlabored. ABSENT: prolonged expiratory phas, rales, rhonchi, tachypnea, wheezes Cardiovascular exam: PRESENT: RRR, +S1, +S2. ABSENT: diastolic murmur, irregular rhythm, systolic murmur Breast: PRESENT: Tenderness, Other - Erythema across the breast GI/Abdominal exam: PRESENT: normal bowel sounds, soft. ABSENT: tenderness Rectal exam: PRESENT: deferred Gentrourinary exam: ABSENT: indwelling catheter Extremities exam: PRESENT: pedal edema, +1 edema, other - Right arm with erythema and tenderness especially proximally. ABSENT: calf tenderness Musculoskeletal exam: PRESENT: ambulatory, normal inspection. ABSENT: deformity Neurological exam: PRESENT: alert, awake, oriented to person, oriented to place, oriented to time, oriented to situation, CN II-XII grossly intact. ABSENT: altered, motor sensory deficit Psychiatric exam: PRESENT: flat affect. ABSENT: agitated, anxious Focused psych exam: ABSENT: delusional, paranoid, restlessness Skin exam: PRESENT: erythema - Blotchy erythema across the right chest, breast, back and right arm. Tendernes over these areas as wll Results Laboratory Results: 10/13/19 09:35 10/13/19 09:35 10/13/19 10/13/19 10/13/19 09:35 09:35 09:35 WBC 10.7 H RBC 4.36 Hgb 13.2 Hct 38.6 MCV 89 MCH 30.2 MCHC 34.2 RDW 13.7 Plt Count 291 Seg Neutrophils % 75.8 VBG pH 7.42 VBG pCO2 45.3 VBG HCO3 28.5 VBG Base Excess 3.3 Sodium 135.6 L Potassium 4.0 Chloride 102 Carbon Dioxide 27 Anion Gap 7 BUN 41 H Creatinine 1.49 H Est GFR ( Amer) 43 L Glucose 117 H Lactic Acid Calcium 9.7 Total Bilirubin 0.4 AST 31 Alkaline Phosphatase 60 Total Protein 6.7 Albumin 3.7 10/13/19 09:35 WBC RBC Hgb Hct MCV MCH MCHC RDW Plt Count Seg Neutrophils % VBG pH VBG pCO2 VBG HCO3 VBG Base Excess Sodium Potassium Chloride Carbon Dioxide Anion Gap BUN Creatinine Est GFR ( Amer) Glucose Lactic Acid 1.2 Calcium Total Bilirubin AST Alkaline Phosphatase Total Protein Albumin Impressions: Chest X-Ray 10/13/19 09:41 IMPRESSION: No acute cardiopulmonary process. Assessment and Plan - Diagnosis (1) Cellulitis of arm, right Is this a current diagnosis for this admission?: Yes Plan: History of recent mastitis. New onset cellulitis was quite rapid. We will use vancomycin and clindamycin for maximum effectiveness. ID consult requested as well. (2) Cellulitis of right breast Is this a current diagnosis for this admission?: Yes Plan: as above (3) Cellulitis of right shoulder Is this a current diagnosis for this admission?: Yes Plan: as above (4) Acute kidney injury Is this a current diagnosis for this admission?: Yes Plan: The creatinine kinase slightly elevated. Unsure of the exact etiology. Likely due to infection. The patient may also be slightly dehydrated as she reports decreased appetite with the infection. She has received intravenous fluids. We will recheck renal function tomorrow. (5) Hypertension Qualifiers: Hypertension type: essential hypertension Qualified Code(s): I10 - Essential (primary) hypertension Is this a current diagnosis for this admission?: Yes Plan: Continue carvedilol and lisinopril. The patient was hypotensive initially but has responded to IV fluids. I will initiate her hydrochlorothiazide starting tomorrow. Continue to monitor vital signs. (6) Hyperlipidemia Qualifiers: Hyperlipidemia type: unspecified Qualified Code(s): E78.5 - Hyperlipidemia, unspecified Is this a current diagnosis for this admission?: Yes Plan: Continue statin therapy (7) Depression Qualifiers: Depression Type: unspecified Qualified Code(s): F32.9 - Major depressive disorder, single episode, unspecified Is this a current diagnosis for this admission?: Yes Plan: Continue Effexor at home dose (8) Morbid obesity with BMI of 40.0-44.9, adult Is this a current diagnosis for this admission?: Yes Plan: The patient's BMI is 44.3. This and its a level of complexity to her comorbidities. Consider aggressive dieting and eventual incorporation of exercise for weight loss in the future. (9) History of breast cancer Is this a current diagnosis for this admission?: Yes Plan: Continue letrozole - Time Time Spent with patient: 35 or more minutes Medications reviewed and adjusted accordingly: Yes Anticipated discharge: Home - Inpatient Certification Based on my medical assessment, after consideration of the patient's comorbidities, presenting symptoms, or acuity I expect that the services needed warrant INPATIENT care.: Yes I certify that my determination is in accordance with my understanding of Medicare's requirements for reasonable and necessary INPATIENT services [42 CFR 412.3e].: Yes Medical Necessity: Need Close Monitoring Due to Risk of Patient Decompensation, Need For IV Fluids, Need for Pain Control, Need for IV Antibiotics Post Hospital Care: D/C Torch Operator Documentation
[2019-10-13 13:38] LABS: APPEARANCE,URINE CLEAR; BILIRUBIN,URINE NEGATIVE (NEGATIVE); COLOR,URINE COLORLESS; GLUCOSE, URINE NEGATIVE (NEGATIVE); KETONES,URINE NEGATIVE (NEGATIVE); PROTEIN,URINE NEGATIVE (NEGATIVE); URINE SPECIFIC GRAVITY 1.003; UROBILINOGEN,URINE NEGATIVE mg/dL (<2.0)
--- NOTE | 2019-10-13 14:05 | RADIOLOGY REPORT (SQ) ---
EXAM DESCRIPTION: VENOUS UNILATERAL UPPER IMAGES COMPLETED DATE/TIME: 10/13/2019 1:48 pm REASON FOR STUDY: right upper extremity COMPARISON: None. TECHNIQUE: Dynamic and static ceballos scale and color images acquired of the right arm venous system. S elected spectral images acquired with additional compression and augmentation maneuvers. The contrala teral subclavian vein and internal jugular vein were also imaged. Images stored on PACS. LIMITATIONS: None. FINDINGS: INTERNAL JUGULAR VEIN: Normal phasicity. No visualized echogenic material on ceballos scale. N o defects on color images. SUBCLAVIAN VEIN: Normal compression, augmentation. No visualized echogenic material on ceballos scale. No defects on color images. AXILLARY VEIN: Normal compression, augmentation. No visualized echogenic material on ceballos scale. No d efects on color images. BRACHIAL VEIN: Normal compression, augmentation. No visualized echogenic material on ceballos scale. No d efects on color images. BASILIC VEIN: Normal compression, augmentation. No visualized echogenic material on ceballos scale. No de fects on color images. CEPHALIC VEIN: Normal compression, augmentation. No visualized echogenic material on ceballos scale. No d efects on color images. OTHER: No other finding. CONTRALATERAL INTERNAL JUGULAR VEIN: Normal phasicity. No visualized echogenic material on ceballos scale. No defects on color images. IMPRESSION: NO EVIDENCE DVT OR SVT IN THE RIGHT ARM. TECHNICAL DOCUMENTATION: JOB ID: [id number] 2010 [employer]- All Rights Reserved Reading location - IP/workstation name: [email or web address]
[2019-10-13] MEDS: CETIRIZINE 10 MG TABLET PO SCH (14:07)
[2019-10-13] MEDS: RINGERS SOLUTION,LACTATED 1,000 ML IV PRN (14:10)
[2019-10-13] MEDS: HEPARIN SOD (PORCINE) 5,000 UNIT/ML 1 ML VIAL SUBCUT SCH ×2 (14:10→21:29)
[2019-10-13] MEDS: CLINDAMYCIN 600 MG/D5W RTU 600 MG/50 ML RTUPB IV SCH ×2 (14:10→21:30)
[2019-10-13] MEDS ORDERED: DAPTOMYCIN 400 MG in NORMAL SALINE 50 ML IV SCH (16:00)
--- NOTE | 2019-10-13 17:54 | Progress Note ---
Provider Note Provider Note: [facility] Telephone Advice Consultation Chart reviewed. Patient is a 64-year-old woman with history of breat cancer in 2016 s/p lumpectomy, chemotherapy and radiation therapy. She also has hypertension. She recently had a mammogram in September 2019 that did show some thickening of the breast tissue. She srated noticing redness of her right breast that extended to her chest wall and right arm. She has been afebrile, but was hypotensive. US Doppler of the right upper extremity was negative for SVT or DVT. No leukocytosis, creatinine slightly elevated. She was started on vancomycin and clindamycin. ID consulted for recommendations. PMH: Breast cancer hypertension PSH: Lumpectomy Allergies: No Known Allergies Allergy (Verified 10/13/19 11:50) Medications: Carvedilol [Coreg 6.25 mg Tablet] 6.25 mg PO BID 10/13/19 Cetirizine HCl [Zyrtec] 10 mg PO DAILY 10/13/19 Hydrochlorothiazide [Hydrodiuril 25 mg Tablet] 25 mg PO DAILY 10/13/19 Hydrocodone/Acetaminophen [[place] 10-325 Tablet] 1 each PO QIDP PRN 10/13/19 Letrozole 2.5 mg PO DAILY 10/13/19 Lisinopril [Prinivil 10 mg Tablet] 10 mg PO BID 10/13/19 Meloxicam [Mobic 15 mg Tablet] 15 mg PO DAILYP PRN 10/13/19 Oxybutynin Chloride [Ditropan 5 mg Tablet] 5 mg PO BID 10/13/19 Rosuvastatin Calcium 10 mg PO QHS 10/13/19 Venlafaxine HCl [Effexor 75 mg Tablet] 75 mg PO BID 10/13/19 Vital Signs: Temp Pulse Resp BP Pulse Ox 98.3 F 78 16 147/83 H 100 10/13/19 15:22 10/13/19 15:22 10/13/19 15:22 10/13/19 15:22 10/13/19 15:22 Intake & Output 10/12/19 10/13/19 10/14/19 06:59 06:59 06:59 Intake Total 3140 Balance 3140 Weight 103 kg Weight/Height Weight 103 kg Height 5 ft Laboratories: 10/13/19 09:35 10/13/19 09:35 MCV 89 fl (80-97) 10/13/19 09:35 MCH 30.2 pg (27.0-33.4) 10/13/19 09:35 MCHC 34.2 g/dL (32.0-36.0) 10/13/19 09:35 RDW 13.7 % (11.5-14.0) 10/13/19 09:35 Seg Neutrophils % 75.8 % (42-78) 10/13/19 09:35 VBG pH 7.42 (7.30-7.42) 10/13/19 09:35 VBG pCO2 45.3 mmHg (35-63) 10/13/19 09:35 VBG HCO3 28.5 mmol/L (20-32) 10/13/19 09:35 VBG Base Excess 3.3 mmol/L 10/13/19 09:35 Chloride 102 mmol/L (98-107) 10/13/19 09:35 Carbon Dioxide 27 mmol/L (22-30) 10/13/19 09:35 Anion Gap 7 (5-19) 10/13/19 09:35 Est GFR ( Amer) 43 (>60) L 10/13/19 09:35 Glucose 117 mg/dL (75-110) H 10/13/19 09:35 Lactic Acid 1.1 mmol/L (0.7-2.1) 10/13/19 13:28 Calcium 9.7 mg/dL (8.4-10.2) 10/13/19 09:35 Total Bilirubin 0.4 mg/dL (0.2-1.3) 10/13/19 09:35 AST 31 U/L (14-36) 10/13/19 09:35 Alkaline Phosphatase 60 U/L (38-126) 10/13/19 09:35 Total Protein 6.7 g/dL (6.3-8.2) 10/13/19 09:35 Albumin 3.7 g/dL (3.5-5.0) 10/13/19 09:35 Urine Color COLORLESS 10/13/19 13:06 Urine Appearance CLEAR 10/13/19 13:06 Urine pH 7.0 (5.0-9.0) 10/13/19 13:06 Ur Specific [place] 1.003 10/13/19 13:06 Urine Protein NEGATIVE mg/dL (NEGATIVE) 10/13/19 13:06 Urine Glucose (UA) NEGATIVE mg/dL (NEGATIVE) 10/13/19 13:06 Urine Ketones NEGATIVE mg/dL (NEGATIVE) 10/13/19 13:06 Urine Blood SMALL (NEGATIVE) H 10/13/19 13:06 Urine RBC (Auto) 1 /HPF 10/13/19 13:06 Microbiology: Blood culture 10/12 In process Urine culture 10/12 In process Radiology: Chest X-Ray 10/13/19 09:41 IMPRESSION: No acute cardiopulmonary process. Venous Doppler Study 10/13/19 09:42 IMPRESSION: NO EVIDENCE DVT OR SVT IN THE RIGHT ARM. Assessment and Recommendations: Patient evaluated due to right breast cellulitis in the setting of previous breast cancer, lumpectomy, chemotherpay and radiation. Her anatomy is different and there is certainly higher risk of infection as lymphatics are probably compromised as well. Most common causes would be Gram positives including Staphylococcus and Streptococcus. Even though vancomycin is adequate, it will probably be difficult to dose due to her weight. Can consider daptomycin 6mg/kg daily with baseline CK (may have to hold statin to avoid muscle toxicity). Clindamycin is adequate for toxin inhibition for 48-72 hr. She is on an SSRI which will be a problem for linezolid due to increased risk of serotonin syndrome. Duration of therapy will depend on blood cultures and clinical response. Baseline ESR and CRP may help as well. Emmanuelle Qureshi MD [facility] [id number]
[2019-10-13] MEDS: CARVEDILOL 6.25 MG TABLET PO SCH (18:08)
[2019-10-13] MEDS: LISINOPRIL 10 MG TABLET PO SCH (18:08)
[2019-10-13] MEDS: LACTOBACILLUS ACIDOPHILUS 250 MG TAB PO SCH (18:08)
--- NOTE | 2019-10-13 18:20 | EKG REPORT ---
SEVERITY:- NORMAL ECG - SINUS RHYTHM : Confirmed by: Miguel Angel Willett MD 13-Oct-2019 18:19:41
[2019-10-13] MEDS: OXYBUTYNIN CHLORIDE 5 MG TABLET PO SCH (19:20)
[2019-10-13] MEDS: HYDROCODONE/ACETAMINOPHEN 10-325 MG TABLET PO PRN (19:20)
[2019-10-13] MEDS: DAPTOMYCIN 400 MG in NORMAL SALINE 50 ML IV SCH (19:22)
[2019-10-13] MEDS: VENLAFAXINE HCL 75 MG TABLET PO SCH (19:22)
[2019-10-13] MEDS ORDERED: (PENDING PHARMACY ID) (Rosuvastatin Calcium [Rosuvastatin Calcium] 10 MG) PO SCH (22:00)
[2019-10-13] MEDS ORDERED: ATORVASTATIN CALCIUM 20 MG TABLET PO SCH (22:00)
[2019-10-14 05:08] LABS: ABSOLUTE BASOPHILS # (AUTO) 0.1 10^3/uL (0.0-0.2); ABSOLUTE EOSINOPHILS # (AUTO) 0.5 10^3/uL (0.0-0.6); ABSOLUTE LYMPHOCYTES (AUTO) 2.2 10^3/uL (0.5-4.7); BASOPHILS % (AUTO) 0.8 % (0-2); EOSINOPHILS % (AUTO) 6.7 % (0-6); HEMATOCRIT 35.7 % (36.0-47.0); HEMOGLOBIN 12.1 g/dL (12.0-15.5); LYMPHOCYTES % (AUTO) 28.3 % (13-45); MEAN CORPUSCULAR HGB CONC 33.8 g/dL (32.0-36.0); MEAN CORPUSCULAR VOLUME 89 fl (80-97); MONOCYTES % (AUTO) 12.6 % (3-13); PLATELET COUNT 267 10^3/uL (150-450); RED BLOOD COUNT 4.02 10^6/uL (3.72-5.28); RED CELL DISTRIBUTION WIDTH 13.9 % (11.5-14.0); SEGMENTED NEUTROPHILS % (AUTO) 51.6 % (42-78); TOTAL CELLS COUNTED % (AUTO) 100 %; WHITE BLOOD COUNT 7.7 10^3/uL (4.0-10.5)
[2019-10-14 05:28] LABS: ANION GAP 5 (5-19); BLOOD UREA NITROGEN 28 mg/dL (7-20); CALCIUM 9.2 mg/dL (8.4-10.2); CARBON DIOXIDE 26 mmol/L (22-30); CHLORIDE 104 mmol/L (98-107); CREATINE KINASE 135 U/L (30-135); GLUCOSE 92 mg/dL (75-110); POTASSIUM 4.2 mmol/L (3.6-5.0)
[2019-10-14 05:44] LABS: ERYTHROCYTE SEDIMENTATION RATE 60 mm/hr (0-30)
[2019-10-14] MEDS: CLINDAMYCIN 600 MG/D5W RTU 600 MG/50 ML RTUPB IV SCH ×3 (06:29→21:57)
[2019-10-14] MEDS: HEPARIN SOD (PORCINE) 5,000 UNIT/ML 1 ML VIAL SUBCUT SCH ×3 (06:29→21:58)
[2019-10-14] MEDS: RINGERS SOLUTION,LACTATED 1,000 ML IV PRN (06:36)
[2019-10-14] MEDS: HYDROCHLOROTHIAZIDE 25 MG TABLET PO SCH (10:40)
[2019-10-14] MEDS: VENLAFAXINE HCL 75 MG TABLET PO SCH ×2 (10:40→18:13)
[2019-10-14] MEDS: LISINOPRIL 10 MG TABLET PO SCH ×2 (10:40→18:12)
[2019-10-14] MEDS: LETROZOLE 2.5 MG TABLET PO SCH (10:40)
[2019-10-14] MEDS: CETIRIZINE 10 MG TABLET PO SCH ×2 (10:40→10:45)
[2019-10-14] MEDS: CARVEDILOL 6.25 MG TABLET PO SCH ×2 (10:40→18:12)
[2019-10-14] MEDS: LACTOBACILLUS ACIDOPHILUS 250 MG TAB PO SCH ×2 (10:40→18:12)
--- NOTE | 2019-10-14 11:20 | PDOC PROGRESS REPORT ---
Subjective Progress Note for:: 10/14/19 Subjective:: The patient admits to less discomfort but she has developed a papular rash in several areas especially the area over the right scapula and right chest. Overall the erythema is receding. Reason For Visit: EXTENSIVE CELLULITIS RIGTH CHEST SHOULDER AND BACK Physical Exam Vital Signs: Temp Pulse Resp BP Pulse Ox 98.1 F 83 15 142/53 H 98 10/14/19 08:19 10/14/19 08:19 10/14/19 08:19 10/14/19 08:19 10/14/19 08:19 Intake & Output 10/13/19 10/14/19 10/15/19 06:59 06:59 06:59 Intake Total 6380 Balance 6380 Weight 103 kg General appearance: PRESENT: no acute distress, cooperative, morbidly obese, well-developed Head exam: PRESENT: atraumatic, normocephalic Eye exam: PRESENT: conjunctiva pink, EOMI. ABSENT: scleral icterus Ear exam: PRESENT: normal external ear exam. ABSENT: bleeding, drainage Mouth exam: PRESENT: moist, tongue midline Respiratory exam: PRESENT: clear to auscultation raul, symmetrical, unlabored. ABSENT: prolonged expiratory phas, rales, rhonchi, tachypnea, wheezes Cardiovascular exam: PRESENT: RRR, +S1, +S2, systolic murmur - 2/6. ABSENT: diastolic murmur, irregular rhythm GI/Abdominal exam: PRESENT: normal bowel sounds, soft, other - Protuberant abdomen. ABSENT: distended, guarding, tenderness Rectal exam: PRESENT: deferred Gentrourinary exam: ABSENT: indwelling catheter Extremities exam: PRESENT: pedal edema Musculoskeletal exam: PRESENT: ambulatory, normal inspection. ABSENT: deformity, dislocation Neurological exam: PRESENT: alert, awake, oriented to person, oriented to place, oriented to time, oriented to situation, CN II-XII grossly intact. ABSENT: altered, motor sensory deficit Psychiatric exam: PRESENT: appropriate affect. ABSENT: agitated, anxious Focused psych exam: ABSENT: delusional, paranoid, restlessness Skin exam: PRESENT: erythema, other - The erythematous areas are still slightly warmer than the surrounding skin. Obvious decrease in erythema has receded from the original margin lines. There is now a papular component especially over the right scapular area and right upper chest. There are no open areas and there is no drainage. No vesicles are present. Results Laboratory Results: 10/14/19 04:27 10/14/19 04:27 10/13/19 10/13/19 10/13/19 13:06 13:28 17:22 WBC RBC Hgb Hct MCV MCH MCHC RDW Plt Count Seg Neutrophils % Sodium Potassium Chloride Carbon Dioxide Anion Gap BUN Creatinine Est GFR ( Amer) Glucose Lactic Acid 1.1 1.4 Calcium Magnesium Urine Color COLORLESS Urine Appearance CLEAR Urine pH 7.0 Ur Specific [place] 1.003 Urine Protein NEGATIVE Urine Glucose (UA) NEGATIVE Urine Ketones NEGATIVE Urine Blood SMALL H Urine RBC (Auto) 1 10/14/19 10/14/19 04:27 04:27 WBC 7.7 RBC 4.02 Hgb 12.1 Hct 35.7 L MCV 89 MCH 30.0 MCHC 33.8 RDW 13.9 Plt Count 267 Seg Neutrophils % 51.6 Sodium 135.2 L Potassium 4.2 Chloride 104 Carbon Dioxide 26 Anion Gap 5 BUN 28 H Creatinine 1.00 Est GFR ( Amer) > 60 Glucose 92 Lactic Acid Calcium 9.2 Magnesium 1.9 Urine Color Urine Appearance Urine pH Ur Specific [place] Urine Protein Urine Glucose (UA) Urine Ketones Urine Blood Urine RBC (Auto) 10/14/19 04:27 Creatine Kinase 135 Impressions: Chest X-Ray 10/13/19 09:41 IMPRESSION: No acute cardiopulmonary process. Venous Doppler Study 10/13/19 09:42 IMPRESSION: NO EVIDENCE DVT OR SVT IN THE RIGHT ARM. Assessment and Plan - Diagnosis (1) Cellulitis of arm, right Is this a current diagnosis for this admission?: Yes Plan: Definitely better. Patient is developing a maculopapular rash. Will need to monitor closely. (2) Cellulitis of right breast Is this a current diagnosis for this admission?: Yes Plan: As above (3) Cellulitis of right shoulder Is this a current diagnosis for this admission?: Yes Plan: as above (4) Acute kidney injury Is this a current diagnosis for this admission?: Yes Plan: BUN is still slightly elevated at 28 serum creatinine is down to 1.0. Acute injury resolved. (5) Hypertension Qualifiers: Hypertension type: essential hypertension Qualified Code(s): I10 - Essential (primary) hypertension Is this a current diagnosis for this admission?: Yes Plan: Continue current regimen. Adequately controlled. (6) Hyperlipidemia Qualifiers: Hyperlipidemia type: unspecified Qualified Code(s): E78.5 - Hyperlipidemia, unspecified Is this a current diagnosis for this admission?: Yes Plan: Continue statin therapy (7) Depression Qualifiers: Depression Type: unspecified Qualified Code(s): F32.9 - Major depressive disorder, single episode, unspecified Is this a current diagnosis for this admission?: Yes Plan: Continue Effexor at home dose (8) Morbid obesity with BMI of 40.0-44.9, adult Is this a current diagnosis for this admission?: Yes Plan: The patient's BMI is 44.3. This and its a level of complexity to her comorbid ities. Consider aggressive dieting and eventual incorporation of exercise for weight loss in the future. (9) History of breast cancer Is this a current diagnosis for this admission?: Yes Plan: Continue letrozole (10) Rash Is this a current diagnosis for this admission?: Yes Plan: It is possible that the rash/erythema is not from infection at all. The patient 's white blood cell count was just barely above the upper limit of normal at 10.7. With this level of infection I would have expected it to be higher. Her sed rate was 60 which was surprisingly high. She could in fact be having an allergic or autoimmune mediated rash. I have ordered antinuclear antibody with reflex. Depending on how the skin looks tomorrow I may try a steroid dose. - Time Time Spent with patient: 25-34 minutes Medications reviewed and adjusted accordingly: Yes Anticipated discharge: Home
[2019-10-14] MEDS: OXYBUTYNIN CHLORIDE 5 MG TABLET PO SCH ×2 (11:49→18:13)
[2019-10-14] MEDS: DAPTOMYCIN 400 MG in NORMAL SALINE 50 ML IV SCH (18:17)
[2019-10-14] MEDS: HYDROCODONE/ACETAMINOPHEN 10-325 MG TABLET PO PRN (19:42)
[2019-10-15] MEDS: HEPARIN SOD (PORCINE) 5,000 UNIT/ML 1 ML VIAL SUBCUT SCH (05:15)
[2019-10-15] MEDS: CLINDAMYCIN 600 MG/D5W RTU 600 MG/50 ML RTUPB IV SCH (05:15)
[2019-10-15] MEDS: CARVEDILOL 6.25 MG TABLET PO SCH (09:23)
[2019-10-15] MEDS: LACTOBACILLUS ACIDOPHILUS 250 MG TAB PO SCH (09:23)
[2019-10-15] MEDS: LISINOPRIL 10 MG TABLET PO SCH (09:23)
[2019-10-15] MEDS: HYDROCHLOROTHIAZIDE 25 MG TABLET PO SCH (09:23)
[2019-10-15] MEDS: OXYBUTYNIN CHLORIDE 5 MG TABLET PO SCH (09:24)
[2019-10-15] MEDS: CETIRIZINE 10 MG TABLET PO SCH (09:24)
[2019-10-15] MEDS: LETROZOLE 2.5 MG TABLET PO SCH (09:24)
[2019-10-15] MEDS: VENLAFAXINE HCL 75 MG TABLET PO SCH (09:24)
--- NOTE | 2019-10-15 12:26 | PDOC DISCHARGE SUMMARY ---
Impression - Admit/DC Date/PCP Admission Date/Primary Care Provider: 10/13/19 11:49 DANUTA SAENZ Discharge Date: 10/15/19 - Discharge Diagnosis (1) Cellulitis of arm, right Is this a current diagnosis for this admission?: Yes (2) Cellulitis of right breast Is this a current diagnosis for this admission?: Yes (3) Cellulitis of right shoulder Is this a current diagnosis for this admission?: Yes (4) Acute kidney injury Is this a current diagnosis for this admission?: Yes (5) Hypertension Is this a current diagnosis for this admission?: Yes (6) Hyperlipidemia Is this a current diagnosis for this admission?: Yes (7) Depression Is this a current diagnosis for this admission?: Yes (8) Morbid obesity with BMI of 40.0-44.9, adult Is this a current diagnosis for this admission?: Yes (9) History of breast cancer Is this a current diagnosis for this admission?: Yes (10) Rash Is this a current diagnosis for this admission?: Yes - Additional Information Resuscitation Status: Do Not Resuscitate Discharge Diet: Cardiac Discharge Activity: Activity As Tolerated Referrals: NAINA ADORNO PA [Primary Care Provider] - Follow up as needed Prescriptions: Amoxicillin/Potassium Clav [Augmentin 875-125 Tablet] 1 tab PO Q12 #20 tablet Home Medications: Carvedilol [Coreg 6.25 mg Tablet] 6.25 mg PO BID 10/13/19 Cetirizine HCl [Zyrtec] 10 mg PO DAILY 10/13/19 Hydrochlorothiazide [Hydrodiuril 25 mg Tablet] 25 mg PO DAILY 10/13/19 Hydrocodone/Acetaminophen [[place] 10-325 Tablet] 1 each PO QIDP PRN 10/13/19 Letrozole 2.5 mg PO DAILY 10/13/19 Lisinopril [Prinivil 10 mg Tablet] 10 mg PO BID 10/13/19 Meloxicam [Mobic 15 mg Tablet] 15 mg PO DAILYP PRN 10/13/19 Oxybutynin Chloride [Ditropan 5 mg Tablet] 5 mg PO BID 10/13/19 Rosuvastatin Calcium 10 mg PO QHS 10/13/19 Venlafaxine HCl [Effexor 75 mg Tablet] 75 mg PO BID 10/13/19 Amoxicillin/Potassium Clav [Augmentin 875-125 Tablet] 1 tab PO Q12 #20 tablet 10/15/19 Lactobacillus Acidophilus [Bacid 250 mg Tablet] 500 mg PO BID tab 10/15/19 History of Present Illiness History of Present Illness: MARYBETH SIMON is a 64 year old female Hospital Course Hospital Course: Hospital course. Patient responded to the antibiotic therapy. I did order immunologic studies to make sure that this infection is not a skin manifestation of an autoimmune disease. These results are still pending. Physical Exam Vital Signs: Temp Pulse Resp BP Pulse Ox 98.2 F 89 20 135/63 H 94 10/15/19 08:34 10/15/19 08:34 10/15/19 08:34 10/15/19 08:34 10/15/19 12:20 Intake & Output 10/14/19 10/15/19 10/16/19 06:59 06:59 06:59 Intake Total 6380 3050 Balance 6380 3050 Weight 103 kg 105.6 kg General appearance: PRESENT: no acute distress Respiratory exam: PRESENT: clear to auscultation raul, symmetrical, unlabored. ABSENT: rales, rhonchi, tachypnea, wheezes Cardiovascular exam: PRESENT: RRR, +S1, +S2 GI/Abdominal exam: PRESENT: normal bowel sounds, soft. ABSENT: distended, tenderness Skin exam: PRESENT: erythema - Significant decrease in erythema all areas. The papular lesions noted yesterday especially on the back of the left shoulder left upper chest have faded to a shadow of their color yesterday. They are no longer raised. Results Laboratory Results: WBC 7.7 10^3/uL (4.0-10.5) 10/14/19 04:27 RBC 4.02 10^6/uL (3.72-5.28) 10/14/19 04:27 Hgb 12.1 g/dL (12.0-15.5) 10/14/19 04:27 Hct 35.7 % (36.0-47.0) L 10/14/19 04:27 MCV 89 fl (80-97) 10/14/19 04:27 MCH 30.0 pg (27.0-33.4) 10/14/19 04:27 MCHC 33.8 g/dL (32.0-36.0) 10/14/19 04:27 RDW 13.9 % (11.5-14.0) 10/14/19 04:27 Plt Count 267 10^3/uL (150-450) 10/14/19 04:27 Lymph % (Auto) 28.3 % (13-45) 10/14/19 04:27 [place] % (Auto) 12.6 % (3-13) 10/14/19 04:27 Eos % (Auto) 6.7 % (0-6) H 10/14/19 04:27 Baso % (Auto) 0.8 % (0-2) 10/14/19 04:27 Absolute Neuts (auto) 4.0 10^3/uL (1.7-8.2) 10/14/19 04:27 Absolute Lymphs (auto) 2.2 10^3/uL (0.5-4.7) 10/14/19 04:27 Absolute Monos (auto) 1.0 10^3/uL (0.1-1.4) 10/14/19 04:27 Absolute Eos (auto) 0.5 10^3/uL (0.0-0.6) 10/14/19 04:27 Absolute Basos (auto) 0.1 10^3/uL (0.0-0.2) 10/14/19 04:27 Seg Neutrophils % 51.6 % (42-78) 10/14/19 04:27 ESR 60 mm/hr (0-30) H 10/14/19 04:27 PT 13.8 SEC (11.4-15.4) 10/13/19 09:35 INR 1.06 10/13/19 09:35 VBG pH 7.42 (7.30-7.42) 10/13/19 09:35 VBG pCO2 45.3 mmHg (35-63) 10/13/19 09:35 VBG HCO3 28.5 mmol/L (20-32) 10/13/19 09:35 VBG Base Excess 3.3 mmol/L 10/13/19 09:35 Sodium 135.2 mmol/L (137-145) L 10/14/19 04:27 Potassium 4.2 mmol/L (3.6-5.0) 10/14/19 04:27 Chloride 104 mmol/L (98-107) 10/14/19 04:27 Carbon Dioxide 26 mmol/L (22-30) 10/14/19 04:27 Anion Gap 5 (5-19) 10/14/19 04:27 BUN 28 mg/dL (7-20) H 10/14/19 04:27 Creatinine 1.00 mg/dL (0.52-1.25) 10/14/19 04:27 Est GFR ( Amer) > 60 (>60) 10/14/19 04:27 Est GFR (MDRD) Non-Af 56 (>60) L 10/14/19 04:27 Glucose 92 mg/dL (75-110) 10/14/19 04:27 Lactic Acid 1.4 mmol/L (0.7-2.1) 10/13/19 17:22 Calcium 9.2 mg/dL (8.4-10.2) 10/14/19 04:27 Magnesium 1.9 mg/dL (1.6-2.3) 10/14/19 04:27 Total Bilirubin 0.4 mg/dL (0.2-1.3) 10/13/19 09:35 Direct Bilirubin 0.2 mg/dL (0.0-0.4) 10/13/19 09:35 Neonat Total Bilirubin Not Reportable 10/13/19 09:35 Neonat Direct Bilirubin Not Reportable 10/13/19 09:35 Neonat Indirect Bili Not Reportable 10/13/19 09:35 AST 31 U/L (14-36) 10/13/19 09:35 ALT 26 U/L (<35) 10/13/19 09:35 Alkaline Phosphatase 60 U/L (38-126) 10/13/19 09:35 Creatine Kinase 135 U/L (30-135) 10/14/19 04:27 Total Protein 6.7 g/dL (6.3-8.2) 10/13/19 09:35 Albumin 3.7 g/dL (3.5-5.0) 10/13/19 09:35 Urine Color COLORLESS 10/13/19 13:06 Urine Appearance CLEAR 10/13/19 13:06 Urine pH 7.0 (5.0-9.0) 10/13/19 13:06 Ur Specific [place] 1.003 10/13/19 13:06 Urine Protein NEGATIVE mg/dL (NEGATIVE) 10/13/19 13:06 Urine Glucose (UA) NEGATIVE mg/dL (NEGATIVE) 10/13/19 13:06 Urine Ketones NEGATIVE mg/dL (NEGATIVE) 10/13/19 13:06 Urine Blood SMALL (NEGATIVE) H 10/13/19 13:06 Urine Nitrite (Reflex) NEGATIVE (NEGATIVE) 10/13/19 13:06 Urine Bilirubin NEGATIVE (NEGATIVE) 10/13/19 13:06 Urine Urobilinogen NEGATIVE mg/dL (<2.0) 10/13/19 13:06 Leukocyte Esterase Rfl MODERATE (NEGATIVE) H 10/13/19 13:06 Urine RBC (Auto) 1 /HPF 10/13/19 13:06 Urine Bacteria (Auto) TRACE /HPF 10/13/19 13:06 Urine WBC (Reflex) 2 /HPF 10/13/19 13:06 Squamous Epi Cells Auto 1 /HPF 10/13/19 13:06 Urine Mucus (Auto) RARE /LPF 10/13/19 13:06 Urine Ascorbic Acid NEGATIVE (NEGATIVE) 10/13/19 13:06 Impressions: Chest X-Ray 10/13/19 09:41 IMPRESSION: No acute cardiopulmonary process. Venous Doppler Study 10/13/19 09:42 IMPRESSION: NO EVIDENCE DVT OR SVT IN THE RIGHT ARM. Plan Health Concerns: Abrupt onset of cellulitis. Second episode in the past several months. Consider alternative diagnoses such as skin manifestations of autoimmune disease. Studies are pending. Plan of Treatment: Discharge on oral antibiotic therapy. Follow-up with her primary care provider to review autoimmune blood tests Goals: Resolution of cellulitis or complete investigation of other possibilities such as skin manifestation of any autoimmune disease. Time Spent: Greater than 30 Minutes Stroke Is this a Stroke Patient?: No Acute Heart Failure - Is this a Heart Failure Patient?: No
[2019-10-15 12:40] VITALS: BP 86/58
[2019-10-16 11:41] LABS: ANTINUCLEAR ANTIBODIES Negative (Negative)
== END 2019-10-15 13:47 | disposition home or self-care (01) | DRG 603 ==
LOC: ER 08:59 → EH 11:49 → 4N 15:20
PROVIDERS: ADMIT Hospitalist; ATTEND Hospitalist
DX: L03.113 Cellulitis of right upper limb (principal); Z68.41 Body mass index [BMI] 40.0-44.9, adult; N17.9 Acute kidney failure, unspecified; L03.313 Cellulitis of chest wall; I95.9 Hypotension, unspecified; I10 Essential (primary) hypertension; N61.0 Mastitis without abscess; C50.911 Malignant neoplasm of unspecified site of right female breast; E78.5 Hyperlipidemia, unspecified; Z92.3 Personal history of irradiation; Z92.21 Personal history of antineoplastic chemotherapy; E66.01 Morbid (severe) obesity due to excess calories; G47.30 Sleep apnea, unspecified; E66.9 Obesity, unspecified; K21.9 Gastro-esophageal reflux disease without esophagitis; F32.9 Major depressive disorder, single episode, unspecified; Z82.49 Family history of ischemic heart disease and other diseases of the circulatory system; Z79.899 Other long term (current) drug therapy; R21 Rash and other nonspecific skin eruption
CPT/HCPCS: 36415; 71045; 80048; 80053; 81001; 82550; 82803; 83605; 83735; 85025; 85610; 85652; 86038; 87040; 87086; 93005; 93010; 93971; 94660; 96361; 96365; 99291; J0878; J1644; J3370; J3490; J7120

== ENCOUNTER → 2020-04-08 | Outpatient (CLI) | payer BC ==
--- NOTE | 2020-04-08 10:16 | WOMENS IMAGING REPORT ---
EXAM DESCRIPTION: BONE DENSITY HIP/SPINE IMAGES COMPLETED DATE/TIME: 04/08/2020 10:09 am REASON FOR STUDY: M81.0 M81.0 AGE-RELATED OSTEOPOROSIS W/O CURRENT PATHOLOGICAL FRAC COMPARISON: 04/04/2018 TECHNIQUE: Dual-Energy X-ray Absorptiometry (DEXA) of the AP Spine and Hip. LIMITATIONS: None. FINDINGS: LUMBAR SPINE: The bone mineral density (BMD) measured from L1-L4 in the AP projection correlates with a T-score of -0.2, which is normal as defined by the World Health Organization. BMD Change vs Baseline: -4.2% HIP: The bone mineral density (BMD) measured in the left hip correlates with a T-score of 0.8, which is no rmal as defined by the World Health Organization. BMD Change vs Baseline: +4.4% 10 year Fracture Risk Assessment: Major Osteoporotic Fracture: Not available. Hip Fracture: Not available. IMPRESSION: 1. LUMBAR SPINE WHO CLASSIFICATION: NORMAL. 2. HIP WHO CLASSIFICATION: NORMAL. OVERALL ASSESSMENT: WHO CLASSIFICATION: NORMAL. COMMENT: The World Health Organization defines low BMD as follows: T-score: Normal: At or above -1.0 Osteopenia: Between -1.0 and -2.5 Osteoporosis: At or below -2.5 without fractures Established osteoporosis: At or below -2.5 with fractures In general, you may wish to consider: Diagnosis Treatment Follow-up DEXA Normal BMD Prevention 2-3 years Osteopenia Prevention/Therapy 1-2 years Osteoporosis Therapy Yearly TECHNICAL DOCUMENTATION: JOB ID: [id number] [employer]- All Rights Reserved Reading location - IP/workstation name: [email or web address]
== END ==
LOC: WI 09:51
PROVIDERS: ATTEND Internal Medicine
DX: M81.0 Age-related osteoporosis without current pathological fracture (principal)
CPT/HCPCS: 77080